=== PATIENT | female | born 1955 | race Caucasian/White ===

== ENCOUNTER 2019-09-11 09:59 | Observation (INO) | payer MEDICAID, OTHER ==
[2019-09-11 10:37] LABS: Hematocrit 47.7 % (35-47); Hemoglobin 15.9 gm/dl (12.0-16.0); Mean Cell Volume 93.7 fl (78-100); Mean Corpuscular Hemoglobin 31.2 pg (26-32); Mean Corpuscular Hgb Concent. 33.3 g/dl (32-36); Mean Platelet Volume 9.4 fl (6-9.5); Platelet Count 301 K/mm3 (150-450); Red Blood Count 5.09 M/mm3 (4.1-5.4); Red Cell Distribution Width 13.5 % (11.5-14.0); White Blood Count 10.3 K/mm3 (4.0-10.5)
[2019-09-11] MEDS ORDERED: Sodium Chloride 0.9% 10 ML FLUSH Syringe IV PRN (11:00)
[2019-09-11 11:05] LABS: INR 0.97 (0.8-3.0)
[2019-09-11 11:07] LABS: PTT 38.5 SECONDS (25.3-37.0)
[2019-09-11 11:28] LABS: ALBUMIN 4.5 g/dL (3.5-5.0); ALKALINE PHOSPHATASE 112 U/L (38-126); ANION GAP 16.3 MEQ/L (5-15); BLOOD UREA NITROGEN 14 mg/dL (7-17); CHLORIDE 108 mmol/L (98-107); Calcium 9.8 mg/dL (8.4-10.2); Carbon Dioxide 23 mmol/L (22-30); Cholesterol 256 mg/dL (50-200); Creatinine 1 0.56 mg/dL (0.52-1.04); Glucose 115 mg/dL (74-106); HDL CHOLESTEROL 47 mg/dL (40-60); LDL, DIRECT 145 mg/dL (30-100); Potassium 4.3 mmol/L (3.5-5.1); Risk Ratio 5.4; SGOT/AST 19 U/L (14-36); SGPT/ALT 16 U/L (0-35); SODIUM 143 mmol/L (137-145); TRIGLYCERIDE 211 mg/dL (30-150); Total Protein 8.2 g/dL (6.3-8.2)
[2019-09-11] MEDS ORDERED: VALIUM 10 MG/2 ML SYRINGE IV ONE (11:45)
--- NOTE | 2019-09-11 12:58 | XRAY ---
Indication: Right-sided weakness. Possible TIA. Sagittal, coronal, and axial MRI brain was performed using T1, T2, FLAIR, diffusion, and ADC sequences. Comparison: None Age-appropriate global atrophy and mild periventricular degenerative micro-ischemia signal bilaterally. Left thalamus demonstrates a 3 x 6 mm focus of restricted signal favoring acute ischemia. Posterior right abebe radiata demonstrates a 6 mm focus of remote infarct with gliosis. No acute intracranial hemorrhage, abnormal extra-axial fluid collection, or mass effect. Fourth ventricle is midline without hydrocephalus. 7/8 cranial nerve complex bilaterally symmetric. Normal flow void signal within the major intracerebral circulation. Normal appearing craniocervical junction and sella turcica. Paranasal sinuses are clear. Impression: 1. Left thalamus subcentimeter focus of acute ischemia. No acute hemorrhage or mass effect. 2. Normal aging brain including atrophy and degenerative micro-ischemia. 3. Posterior right abebe radiata subcentimeter remote infarct.
--- NOTE | 2019-09-11 13:00 | XRAY ---
Indication: Right-sided weakness. Multiple falls. Pain. Sagittal and axial MRI cervical spine performed without contrast using T1 and T2 weighted sequences. Comparison: None Several axial images are mildly degraded by motion artifact. Sagittal images demonstrates mild straightening of the upper cervical lordosis. Multilevel degenerative disc desiccation signal with C4-C6 disc space narrowing. No acute fracture, subluxation, or abnormal bone marrow signal. Spinal cord is normal in course and caliber without signal abnormality. Normal appearing craniocervical junction. Axial images at the C2-C3 level demonstrates left foraminal stenosis due to uncovertebral spurring. No disc herniation or canal stenosis. At the C3-C4 level, there is mild bilateral foraminal narrowing due to uncovertebral spurring. No disc herniation or canal stenosis. At the C4-C5-C6 levels, there is mild broad-based disc osteophyte complex slightly effacing the thecal sac and producing bilateral foraminal stenosis. Mean AP thecal sac diameter measures 11 mm at C4-C5 level and 8mm at C5-C6 level. Remaining C6-T1 levels unremarkable. Impression: 1. Mild motion artifact. 2. Multilevel degenerative disc disease detailed level by level. Greatest extent at C5-C6. 3. Negative disc herniation or spinal canal stenosis.
[2019-09-11] MEDS: SYNTHROID 50 MCG PO SCH (14:46)
[2019-09-11] MEDS: APRESOLINE 20 MG/ML INJ IV PRN ×2 (14:46→16:57)
[2019-09-11] MEDS: Sodium Chloride 0.9% 10 ML FLUSH Syringe IV SCH ×2 (14:47→21:41)
--- NOTE | 2019-09-11 15:22 | XRAY ---
Indication: TIA versus stroke. Two-dimensional sonogram and color Doppler imaging of the carotid arteries of the neck performed. Comparison: None Examination of the right carotid circulation demonstrates mildly tortuous common carotid artery. No focal arteriosclerotic plaquing, critical stenosis, or obstruction. PSV of the CCA is 69 cm/s. PSV of the ICA is 104 cm/s. ICA/CCA ratio is 1.5. Normal antegrade vertebral artery flow. Examination of the left carotid circulation demonstrates minimal eccentric calcified plaquing in the distal common carotid artery and proximal internal carotid artery. PSV of the CCA is 62 cm/s. PSV of the ICA is 76 cm/s. ICA/CCA ratio is 1.2. Normal antegrade vertebral artery flow. Impression: Widely patent right carotid circulation and minimal left carotid plaquing as detailed. Velocity measurements and ratios are negative for hemodynamically significant flow-limiting stenosis.
[2019-09-11] MEDS: PLAVIX 75 MG Tablet PO SCH (17:23)
[2019-09-11] MEDS: Ecotrin 325 MG PO SCH (17:23)
[2019-09-11] MEDS ORDERED: Zofran 4 MG/2 ML VIAL IV PRN (17:31)
[2019-09-11] MEDS ORDERED: ZOCOR 20MG PO SCH (17:35)
[2019-09-11] MEDS ORDERED: TRANDATE 20 MG/5 ML SYRINGE IV ONE (17:43)
[2019-09-11] MEDS: TYLENOL 325 MG PO PRN (17:54)
[2019-09-12] MEDS: TYLENOL 325 MG PO PRN (07:59)
[2019-09-12] MEDS ORDERED: VALIUM 10 MG/2 ML SYRINGE IV ONE ×2 (08:41→11:15)
[2019-09-12] MEDS: Ecotrin 325 MG PO SCH (09:07)
[2019-09-12] MEDS: PLAVIX 75 MG Tablet PO SCH (09:08)
[2019-09-12] MEDS: SYNTHROID 50 MCG PO SCH (09:08)
[2019-09-12] MEDS ORDERED: Toprol Xl 50 MG PO SCH (10:00)
--- NOTE | 2019-09-12 11:23 | ECHO ---
DATE OF PROCEDURE: 09/11/2019 CLINICAL INFORMATION: Transient ischemic attack versus a stroke. The M-mode 2D, and Doppler echocardiogram including color flow Doppler shows the left ventricle is normal in size at 3.6 cm. There is no thrombus noted. The septal wall thickness is increased at 1.4 cm. The left ventricular posterior wall thickness is increased at 1.4 cm. There is normal contractility of the left ventricle with an ejection fraction calculated at 61%. The mitral valve E to A inflow velocity ratio is decreased at 0.6 consistent with impaired left ventricular relaxation. The right ventricle is normal. The left atrium is normal being 3.2 cm. The interatrial septum is intact. The right atrium is normal. The aortic valve opens well. There is no aortic regurgitation present. There is mitral valvular calcification associated with mild mitral regurgitation. There is mild tricuspid regurgitation associated with a right ventricular systolic pressure of 31 mm of Mercury. The pulmonic valve is not well visualized. The aortic root is grossly normal. There is no pericardial effusion present. IMPRESSION: 1) NO THROMBUS IS NOTED. THERE IS NO EVIDENCE OF INTRA-ATRIAL SHUNT. 2) NORMAL CONTRACTILITY OF THE LEFT VENTRICLE. 3) MILD CONCENTRIC LEFT VENTRICULAR HYPERTROPHY. 4) EVIDENCE OF IMPAIRED LEFT VENTRICULAR RELAXATION. 5) MILD MITRAL REGURGITATION. 6) MILD TRICUSPID REGURGITATION. 7) MILD PULMONARY HYPERTENSION.
[2019-09-12 12:16] VITALS: PULSE 96
--- NOTE | 2019-09-12 13:08 | XRAY ---
Indication: Right-sided weakness. Stroke. Conventional contrast enhanced MRA [place] of [place] was performed using 13 cc of Dotarem contrast. Comparison: None Distal internal carotid arteries are bilaterally normal in course and caliber. Normal carotid terminus with normal branching A1 and M1 segments bilaterally. More distal anterior cerebral, middle cerebral, and anterior communicating arteries are normal in MRA appearance. Posterior communicating arteries not seen probably too small for resolution of exam. Posterior circulation demonstrates normal MRA appearance to the distal vertebral arteries with the right slightly larger in caliber. Normal branching posterior inferior cerebellar arteries bilaterally. Basilar artery is normal in course and caliber with normal branching superior cerebellar and anterior inferior cerebral arteries. Normal-appearing basilar tip and posterior cerebral arteries bilaterally. Impression: MRA [place] of [place] with contrast exam is negative.
--- NOTE | 2019-09-12 13:09 | XRAY ---
Indication: Right-sided weakness. Stroke. Conventional contrast enhanced MRA carotid arteries was performed using 13 cc of Dotarem contrast. Comparison: None Visualized aortic arch demonstrates anatomic variant for bovine arch, common origin of the right brachiocephalic and left common carotid arteries. Left and right carotid circulation demonstrates normal MRA appearance of the common carotid artery, bulb, internal carotid, and external carotid arteries. Examination of the vertebral arteries demonstrates bilaterally patent vertebral arteries without AV malformation. Impression: Anatomic variant for bovine arch. Remaining MRA carotid arteries with contrast exam is negative.
[2019-09-12 13:51] VITALS: BP 160/84; O2SAT 94
[2019-09-12] MEDS ORDERED: ZOCOR 20MG PO SCH (22:00)
--- NOTE | 2019-09-15 19:17 | PCM.DS ---
Discharge Summary Date of Admission: 09/11/19 09:59 Admitting Physician: ABDI TALBERT MD Consults: Consults on Case 09/11/19 10:23 Tele-Health Consult ROUTINE Primary Care Provider: ABDI TALBERT MD Allergies Allergies No Known Drug Allergies Allergy (Unverified 09/11/19 11:03) Hospital Summary - Vitals & Intake/Output Vital Signs: Vital Signs Temperature 98.9 F 09/12/19 13:50 Pulse Rate 96 H 09/12/19 13:50 Respiratory Rate 18 09/12/19 11:00 Blood Pressure 160/84 09/12/19 13:50 O2 Sat by Pulse Oximetry 94 L 09/12/19 13:50 Intake & Output: Intake & Output 09/13/19 09/14/19 09/15/19 09/16/19 11:59 11:59 11:59 11:59 Intake Total 360 Balance 360 - Lab Result Diagrams: 09/11/19 10:30 09/11/19 10:30 - Procedures and Test Procedures and Tests throughout Hospitalization: Therapy Orders & Screens 09/11/19 10:23 EKG ROUTINE Comment: 09/11/19 12:11 OT Screen per Nursing Assess ONCE Comment: Protocol Order Physician Instructions: Greater than 3 points order OT Admission Screening Reason For Exam: Triggered on Admission Diagnosis: TIA VS STROKE Open Wound/Cellutlitis/Pressure Ulcers: No Acute Fx/ORIF/Change in wt bearing status: Yes Severe MUSCULOSKELETAL pain: No ADL Dysfunction: No Acute CVA w/Hemiparesis/Hemiplegia: Yes Decreased Functional Mobility/Strength: Yes Sprain/Strain: No Acute Post-op Mobility Dysfunction: No Total Points: 11 PT Screen per Nursing Assess ONCE Comment: Protocol Order Physician Instructions: Greater than 3 points order PT Admission Screenin Reason For Exam: Triggered on Admission Diagnosis: TIA VS STROKE Open Wound/Cellutlitis/Pressure Ulcers: No Acute Fx/ORIF/Change in wt bearing status: Yes Severe MUSCULOSKELETAL pain: No ADL Dysfunction: No Acute CVA w/Hemiparesis/Hemiplegia: Yes Decreased Functional Mobility/Strength: Yes Sprain/Strain: No Acute Post-op Mobility Dysfunction: No Total Points: 11 Discharge Exam General Appearance: no apparent distress, alert Neurologic Exam: alert, oriented x 3, 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 Patient has L sided facial droop. Patient has decreased finger/nose testing on R side as compared to left side. Patient is able to perform the rest of cerebellum testing without deficit), motor weakness, facial droop (left sided), No slurred speech, No aphasia Eye Exam: PERRL, EOMI, eyes nml inspection, No scleral icterus Ears, Nose, Throat Exam: pharynx normal, No pharyngeal erythema, No tonsillar exudate Neck Exam: normal inspection, supple, full range of motion, No non-tender, No carotid bruit, No JVD, No limited range of motion Respiratory Exam: normal breath sounds, lungs clear, No respiratory distress, No crackles/rales, No wheezing Cardiovascular Exam: regular rate/rhythm, normal heart sounds, No murmur Final Diagnosis/Problem List - Final Discharge Diagnosis/Problem (1) CVA (cerebral vascular accident) Status: Acute Assessment & Plan: 64 yr old female with diagnosed stroke left thalamic. Patient was well outside the window for TPA treatment when she was seen in office and directly admitted. Patient started with symptoms at least 24 hours prior to coming to the clinic. Patient has residual motor deficit on R side. Patient was started on dual antiplatelet therapy and will continue on this therapy. Patient had PT ordered and will continue with this as outpatient. Patient was started on high dose statin. She had an echo done in hosp but tele neuro recommended bubble study as potential cause of stroke so patient will have one scheduled as outpatient as they are not performed at this hospital. Patient was also started on HTN meds as she has had underlying htn that has been untreated. Smoking cessation was discussed with patient. Code(s): I63.9 - CEREBRAL INFARCTION, UNSPECIFIED (2) HTN (hypertension) Status: Acute Assessment & Plan: Patient reports that she has had some elevated bp but has not been taking blood pressure medication. She was started on bp meds in hospital and reports that her headache has since improved. Will follow up on patient's bp as outpatient and make sure it is well controlled. Code(s): I10 - ESSENTIAL (PRIMARY) HYPERTENSION (3) Hypothyroid Status: Acute Assessment & Plan: Patient is newly diagnosed hypothyroidism. Will start on synthroid and in 6 weeks will get repeat tsh to make sure patient is being treated appropriately. Code(s): E03.9 - HYPOTHYROIDISM, UNSPECIFIED - Discharge Disposition: Home, Self-Care Condition: Stable Prescriptions: New Aspirin EC 325 mg [Ecotrin 325 MG] 325 mg PO DAILY #30 tablet.ec Clopidogrel Bisulfate 75 mg [PLAVIX 75 MG Tablet] 75 mg PO DAILY #30 tablet Levothyroxine Sodium 50 Mcg [Synthroid 50 Mcg] 50 mcg PO QAM #30 tablet Metoprolol Succinate 50 mg [Toprol Xl 50 MG] 50 mg PO DAILY #30 tablet.sa Simvastatin 20Mg [Zocor 20Mg] 40 mg PO HS #30 tablet Outpatient Orders: Physical Therapy Eval & Treat Location: PHYSICAL THERAPY Instructions: Stroke Additional Instructions: APPOINTMENT FOR PHYSICAL THERAPY AT [facility] 10/19/19 @ 9AM APPOINTMENT FOR ECHO WITH BUBBLE STUDY AT [facility] 09/27/19 @ 2:30PM. Follow up with: ABDI TALBERT MD [Primary Care Provider] - 09/19/19 1:45 pm Forms: Discharge Instructions
== END 2019-09-12 13:50 | disposition home or self-care (01) ==
LOC: MED SURG 09:59
PROVIDERS: ADMIT Family Medicine; ATTEND Family Medicine
DX: I63.9 Cerebral infarction, unspecified (principal); I10 Essential (primary) hypertension; E03.9 Hypothyroidism, unspecified
CPT/HCPCS: 36415; 70544; 70548; 70551; 72141; 80053; 80061; 83721; 84443; 85027; 85610; 85730; 93005; 93268; 93306; 93880; G0378; Q3014; J0360; J3360; A9270-GY

== ENCOUNTER 2021-08-26 07:07 | Day surgery (SDC) | payer MEDICARE ==
--- NOTE | 2021-08-19 12:09 | HP ---
DATE OF SURGERY: 08/26/2021 HISTORY OF PRESENT ILLNESS: The patient presents with complaints of lesion on left lower aspect of the lip. The lesion is pigmented and a bit on atypical side. The patient desires removal of the lesion at this time. PAST MEDICAL HISTORY: Reflux, hyperlipidemia, hypertension, diabetes, thyroid. PAST SURGICAL HISTORY: Tubal ligation. ALLERGIES: NKDA. MEDICATIONS: Per chart. FAMILY HISTORY: None reported. SOCIAL HISTORY: None reported. REVIEW OF SYSTEMS: CONSTITUTIONAL: Denies fever or chills. CHEST: Denies shortness of breath. CVS: Denies chest pain. ABDOMEN: Denies abdominal pain, nausea, vomiting, diarrhea, constipation or rectal bleeding. PHYSICAL EXAMINATION: GENERAL: No acute distress. CHEST: Nonlabored. No shortness of breath. CVS: Regular rate and rhythm. ABDOMEN: Soft, nontender. INTEGUMENTARY: Left lower lip pigmented lesion. IMPRESSION: Atypical lesion of the left lower lip. PLAN: Excision of pigmented atypical lesion of the left lower lip with Dr. Gal Rao. As dictated by Smita Reed NP.
[~2021-08-26 07:07] MED LIST: XYLOCAINE 1% HCL 20 ML MDV ONE
[2021-08-26] MEDS ORDERED: BACIGUENT 30 GM ONE (09:30)
[2021-08-26 10:24] VITALS: BP 148/78; PULSE 89; O2SAT 95
--- NOTE | 2021-08-26 15:09 | OP ---
SURGERY DATE: 08/26/2021 SURGERY TIME: 924 PREOPERATIVE DIAGNOSIS: 1. PIGMENTED SPOT LEFT LOWER LIP. POSTOPERATIVE DIAGNOSIS: 1. PIGMENTED SPOT LEFT LOWER LIP. PROCEDURE: 1. Excision of 1 cm lesion through elliptical excision with closure of the left lower lip. SURGEON: Gal Rao M.D. ANESTHESIA: Local. COMPLICATIONS: None. CONDITION: Stable. INDICATION: Patient requiring excision. OPERATIVE PROCEDURE: Brought to surgery for OR insurance, lights, etc. Very fine small case. 1% Lidocaine was infiltrated. It was taken elliptically. It was slightly oriented left locally from upper left down to lower right. Close margin. It appeared to be benign, but interesting. It was taken slightly wedged. It was the approximated with five simple interrupted sutures of 5-0 chromic on a blunt needle. Good approximation and hemostasis. Patient tolerated the procedure well. Pathology pending.
== END 2021-08-26 10:10 | disposition home or self-care (01) ==
LOC: SDC 07:07
PROVIDERS: ATTEND Surgery
DX: D23.0 Other benign neoplasm of skin of lip (principal)
CPT/HCPCS: 88305; 88313; 88342; A9270-GY

== ENCOUNTER 2022-04-07 19:43 | Observation (INO) | payer MEDICARE ==
[2022-04-07 20:36] LABS: Basophil (Absolute #) 0.03 (0-0.4); Eosinophil % 1.4 % (0.00-5.0); Eosinophil (Absolute #) 0.12 (0-0.5); Hematocrit 46.3 % (35-47); Hemoglobin 14.8 gm/dl (12.0-16.0); Lymphocyte (Absolute #) 1.83 (1.0-4.6); Lymphocytes % 21.4 % (24.0-44.0); Mean Cell Volume 94.5 fl (78-100); Mean Corpuscular Hemoglobin 30.2 pg (26-32); Mean Platelet Volume 9.9 fl (7.5-11.0); Monocyte (Absolute #) 0.69 (0.0-1.3); Monocytes % 8.1 % (0.0-12.0); Neutrophil % 68.7 % (36.0-66.0); Platelet Count 328 K/mm3 (150-450); Red Cell Distribution Width 12.8 % (11.5-14.0); White Blood Count 8.6 K/mm3 (4.0-10.5)
[2022-04-07 20:43] LABS: INR 0.99 (0.8-3.0); PROTIME 11.7 SECONDS (9.4-12.5)
[2022-04-07 20:45] LABS: PTT 33.2 SECONDS (25.1-36.5)
[2022-04-07 20:46] LABS: ALBUMIN 4.2 g/dL (3.5-5.0); ALKALINE PHOSPHATASE 90 U/L (38-126); ANION GAP 13.4 MEQ/L (5-15); BLOOD UREA NITROGEN 14 mg/dL (7-17); CHLORIDE 106 mmol/L (98-107); Calcium 9.1 mg/dL (8.4-10.2); Carbon Dioxide 22 mmol/L (22-30); Creatinine 1 0.58 mg/dL (0.52-1.04); EST GLOMERULAR FILTRATION RATE > 60.0 ML/MIN; Glucose 114 mg/dL (74-106); Potassium 3.9 mmol/L (3.5-5.1); SGOT/AST 27 U/L (14-36); SGPT/ALT 25 U/L (0-35); SODIUM 138 mmol/L (137-145); Total Protein 7.3 g/dL (6.3-8.2)
[2022-04-07 22:27] LABS: Appearance SLIGHTLY CLOUDY (CLEAR); Bilirubin NEGATIVE (NEGATIVE); Glucose NEGATIVE (NEGATIVE); Ketones TRACE (NEGATIVE); Ph 5.5 (5-6); Protein,Urine Dip NEGATIVE (Negative); RBC SMALL Ery/ul (0-5); Specific Gravity >=1.030 (1.005-1.025)
[2022-04-07 22:28] LABS: Dipstick done @ ? MAIN LAB; Nitrite POSITIVE (NEGATIVE); Urobilinogen 1 mg/dL (0-1)
[2022-04-07] MEDS ORDERED: ENOXAPARIN SODIUM SQ ONE ×2 (22:31→22:37)
[2022-04-07 22:35] LABS: Bacteria MODERATE /HPF (NEGATIVE); Epithelial Cells RARE /HPF (FEW); Mucus MODERATE /HPF (NEGATIVE)
--- NOTE | 2022-04-07 22:36 | ERPHSYRPT ---
- History of Present Illness Time Seen by Provider: 04/07/22 19:56 Source: patient, family Exam Limitations: no limitations Patient Subjective Stated Complaint: daughter states on Monday she began to have increased confusion, increase weakness Triage Nursing Assessment: pt ambulated into the er; pt is axo x4; c/o facial droop, increase weakness, rt leg drag; pt states hx stroke with rt side residual weakness; pt states 4/10 pain to head; pt states heartburn; pt has left facial droop; drift present to BUE and BLE; ataxia to BLE; rt foot drag; left side facial droop present; weakness present to RUE and RLE; c/o headache; pupils 3 mm and PERLL; pt states difficulity swallowing; pt states coughing after eating and drinking; c/o heartburn; pt has intermitten confusion; hx stroke in 2019; clear lung sounds in all lobes; clear heart tone; active bowel sounds in all lobes; hypertensive; tachycardic Physician History: 66-year-old female with history of CVA with some right-sided residual weakness, hypertension, hyperlipidemia, diabetes mellitus presented in the ER with 2 days history of increasing difficulties walking where she has to drag her right leg, getting off balance and some stuttering along with left facial droop. Daughter reports facial droop and stuttering started today. Much facial droop is impr deirdre on presentation. She does not have any difficulty speech at present. Denies any chest pain but does have some nausea and headache. Does have history of stroke almost 2 and half years ago. Timing/Duration: day(s) (2), gradual onset, worse Severity: moderate Character of Deficits: impaired speech, Left Facial Deficits: off balance, decrease ability to walk Baseline/Normal Cognition: alert oriented x 3 Current Cognition: alert oriented x 3 Baseline Gait: walks w/o assistance Associated Symptoms: fatigue, weakness, trouble walking, headache, No vision changes, No chest pain Allergies/Adverse Reactions: No Known Drug Allergies Allergy (Verified 04/08/22 00:07) Home Medications: Famotidine [Pepcid] 40 mg PO DAILY 08/19/21 [History] Lisinopril 10 mg [Zestril 10 MG] 10 mg PO DAILY 08/19/21 [History] Metoprolol Succinate 50 mg [Toprol Xl 50 MG] 100 mg PO Q12H 08/19/21 [History] Levothyroxine Sodium 50 Mcg [Synthroid 50 Mcg] 112 mcg PO DAILY 04/07/22 [History] Montelukast Sodium 10 mg [Singulair 10 MG] 10 mg PO DAILY 04/07/22 [History] Aspirin EC 325 mg [Ecotrin 325 MG] 325 mg PO QHS 04/08/22 [History] Metformin HCl [Metformin HCl ER] 500 mg PO DAILY 04/08/22 [History] Hx Tetanus, Diphtheria Vaccination/Date Given: No Hx Influenza Vaccination/Date Given: No Hx Pneumococcal Vaccination/Date Given: No Travel Risk - International Travel Have you traveled outside of the country in past 3 weeks: No - Coronavirus Screening Are you exhibiting any of the following symptoms?: No Close contact with a COVID-19 positive Pt in past 14-21 Days: No - Vaccine Status Have you recieved a Covid-19 vaccination: No - Review of Systems Constitutional: No Symptoms Eyes: No Symptoms Ears, Nose, & Throat: No Symptoms Respiratory: Cough Cardiac: No Symptoms Abdominal/Gastrointestinal: Nausea Genitourinary Symptoms: No Symptoms Musculoskeletal: Arthralgias, Myalgias Skin: No Symptoms Neurological: Dizziness, Gait Changes, Headache, Speech Changes Psychological: Anxiety Endocrine: No Symptoms Hematologic/Lymphatic: No Symptoms Immunological/Allergic: No Symptoms - Past Medical History Pertinent Past Medical History: Yes Neurological History: Stroke ENT History: Cataracts Cardiac History: No Pertinent History Respiratory History: No Pertinent History Endocrine Medical History: Diabetes Type II, Hypothyroidism Musculoskeletal History: No Pertinent History GI Medical History: GERD History: No Pertinent History Psycho-Social History: No Pertinent History Female Reproductive Disorders: No Pertinent History Other Medical History: left side lower lip lesion,goiter - Past Surgical History Past Surgical History: Yes Neuro Surgical History: No Pertinent History Cardiac: No Pertinent History Respiratory: No Pertinent History Gastrointestinal: No Pertinent History Genitourinary: No Pertinent History Musculoskeletal: No Pertinent History Female Surgical History: Tubal Ligation - Social History Smoking Status: Light tobacco smoker Exposure to second hand smoke: No Drug Use: none Patient Lives Alone: No - Nursing Vital Signs Nursing Vital Signs: Initial Vital Signs Temperature 98.7 F 04/07/22 20:08 Pain Scale Pain Intensity 0 - [place] Coma Scale Best Eye Response ([place]): (4) open spontaneously Best Verbal Response ([place]): (5) oriented Best Motor Response ([place]): (6) obeys commands [place] Total: 15 - Physical Exam General Appearance: no apparent distress, alert, anxiety Eye Exam: bilateral eye: normal inspection, PERRL, EOMI Ears, Nose, Throat Exam: normal ENT inspection, TMs normal, pharynx normal, moist mucous membranes Neck Exam: normal inspection, non-tender, supple, full range of motion Respiratory: normal breath sounds, lungs clear Cardiovascular: regular rate/rhythm, normal heart sounds Gastrointestinal: soft, normal bowel sounds, No tenderness Back Exam: normal inspection Extremity Exam: normal inspection, normal range of motion, pelvis stable Mental Status: alert, oriented x 3, 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, 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 Exam: normal hearing, normal speech, PERRL, No facial droop Coordination/Gait: normal finger to nose, positive Romberg's sign, No normal gait Motor/Sensory: pronator drift (R), weak motor strength RLE DTR: bicep (R): 2+, bicep (L): 2+, knee (R): 2+, knee (L): 2+ Skin Exam: normal color SpO2 Interpretation: normal SpO2: 95 O2 Delivery: Room Air - Course EKG Interpreted by Me: RATE (110), Sinus Tach, NORMAL AXIS, NORMAL INTERVALS, NORMAL QRS Ordered Tests: Medication Summary Generic Name Dose Route Start Last Admin Trade Name Freq PRN Reason Stop Dose Admin Acetaminophen 650 mg 04/07/22 23:41 04/08/22 04:48 Acetaminophen 325 Mg Tablet PO 05/07/22 23:40 650 mg Q4H PRN PRN Administration PAIN AND/OR FEVER Aspirin 325 mg 04/08/22 22:00 04/08/22 21:26 Aspirin 325 Mg Tablet.Ec PO 05/08/22 21:59 325 mg QHS RADHA Administration Clopidogrel Bisulfate 75 mg 04/08/22 10:00 04/09/22 10:09 Clopidogrel Bisulfate 75 Mg Tablet PO 05/08/22 09:59 75 mg DAILY RADHA Administration Famotidine 40 mg 04/08/22 10:00 04/09/22 10:09 Famotidine 20 Mg Tablet PO 05/08/22 09:59 40 mg DAILY RADHA Administration Sodium Chloride 1,000 mls @ 125 mls/hr 04/07/22 22:45 04/09/22 04:57 Sodium Chloride 0.9% 1000 Ml IV 05/07/22 22:44 125 mls/hr .Q8H RADHA Administration Ceftriaxone Sodium/Dextrose 1 g in 50 mls @ 100 mls/hr 04/08/22 10:00 04/09/22 10:07 Rocephin 1 Gm-D5w 50 Ml Bag IV 04/11/22 09:59 100 mls/hr Q24H10 RADHA Administration Insulin Human Lispro 0 unit 04/07/22 23:41 Insulin Lispro 1 Unit SQ 05/07/22 23:40 UD PRN HYPERGLYCEMIA Levothyroxine Sodium 112 mcg 04/08/22 10:00 04/09/22 10:23 Levothyroxine Sodium 112 Mcg Tablet PO 05/08/22 09:59 112 mcg DAILY RADHA Administration Lisinopril 10 mg 04/08/22 10:00 04/09/22 10:08 Lisinopril 10 Mg Tablet PO 05/08/22 09:59 10 mg DAILY RADHA Administration Metoprolol Succinate 100 mg 04/08/22 10:00 04/09/22 10:09 Metoprolol Succinate 100 Mg Tablet.Sa PO 05/08/22 09:59 100 mg Q12HT RADHA Administration Montelukast Sodium 10 mg 04/08/22 10:00 04/09/22 10:09 Montelukast Sodium 10 Mg Tablet PO 05/08/22 09:59 10 mg DAILY RADHA Administration Pantoprazole Sodium 40 mg 04/08/22 10:00 04/09/22 10:08 Pantoprazole 40 Mg Vial IV 05/08/22 09:59 40 mg Q24H10 RADHA Administration Simvastatin 40 mg 04/08/22 22:00 04/08/22 21:27 Simvastatin 20 Mg Tablet PO 05/08/22 21:59 40 mg HS RADHA Administration Discontinued Medications Generic Name Dose Route Start Last Admin Trade Name Freq PRN Reason Stop Dose Admin Albuterol/Ipratropium 3 ml 04/07/22 23:41 Ipratropium/Albuterol Sulfate 3 Ml Ampul.Neb IH 04/08/22 00:03 Q4HPRN PRN SHORTNESS OF BREATH/WHEEZING Enoxaparin Sodium 80 mg 04/07/22 22:31 04/07/22 22:38 Enoxaparin Sodium 80 Mg/0.8 Ml Syringe SQ 04/07/22 22:32 80 mg 1XONLY ONE Administration Enoxaparin Sodium Confirm 04/07/22 22:37 Enoxaparin Sodium 80 Mg/0.8 Ml Syringe Administered 04/07/22 22:38 Dose 80 mg SQ .STK-MED ONE Sodium Chloride Confirm 04/07/22 22:40 Sodium Chloride 0.9% 1000 Ml Administered 04/07/22 22:41 Dose 1,000 mls @ ud .ROUTE .STK-MED ONE Lab/Rad Data: Laboratory Result Diagrams 04/07/22 20:20 04/07/22 20:20 Laboratory Results 04/07/22 04/07/22 04/07/22 Range/Units 22:59 22:10 21:53 WBC (4.0-10.5) K/mm3 RBC (4.1-5.4) M/mm3 Hgb (12.0-16.0) gm/dl Hct (35-47) % MCV (78-100) fl MCH (26-32) pg MCHC (32-36) g/dl RDW (11.5-14.0) % Plt Count (150-450) K/mm3 MPV (7.5-11.0) fl Gran % (36.0-66.0) % Eos # (Auto) (0-0.5) Absolute Lymphs (auto) (1.0-4.6) Absolute Monos (auto) (0.0-1.3) Lymphocytes % (24.0-44.0) % Monocytes % (0.0-12.0) % Eosinophils % (0.00-5.0) % Basophils % (0.0-0.4) % Absolute Granulocytes (1.4-6.9) Basophils # (0-0.4) PT (9.4-12.5) SECONDS INR (0.8-3.0) APTT (25.1-36.5) SECONDS Sodium (137-145) mmol/L Potassium (3.5-5.1) mmol/L Chloride (98-107) mmol/L Carbon Dioxide (22-30) mmol/L Anion Gap (5-15) MEQ/L BUN (7-17) mg/dL Creatinine (0.52-1.04) mg/dL Estimated GFR ML/MIN Glucose (74-106) mg/dL Calcium (8.4-10.2) mg/dL Total Bilirubin (0.2-1.3) mg/dL AST (14-36) U/L ALT (0-35) U/L Alkaline Phosphatase (38-126) U/L Troponin I < 0.012 (0.000-0.034) ng/mL Serum Total Protein (6.3-8.2) g/dL Albumin (3.5-5.0) g/dL Urinalys Dipstick Clnc MAIN LAB Urine Color JAIME (YELLOW) Urine Appearance SLIGHTLY CLOUDY (CLEAR) Urine pH 5.5 (5-6) Ur Specific [place] >=1.030 (1.005-1.025) POC Urine Protein Conf NEGATIVE (Negative) Urine Ketones TRACE (NEGATIVE) Urine Nitrite POSITIVE (NEGATIVE) Urine Bilirubin NEGATIVE (NEGATIVE) Urine Urobilinogen 1 (0-1) mg/dL Urine Leukocytes TRACE (NEGATIVE) Urine WBC (Auto) 6-10 (0-5) /HPF Urine RBC (Auto) NONE (0-2) /HPF U Epithel Cells (Auto) RARE (FEW) /HPF Urine Bacteria (Auto) MODERATE (NEGATIVE) /HPF Urine RBC SMALL (0-5) Tanner/ul Urine Mucus (Auto) MODERATE (NEGATIVE) /HPF Ur Culture Indicated? YES Urine Glucose NEGATIVE (NEGATIVE) mg/dL Influenza Type A Ag NEGATIVE (NEGATIVE) Influenza Type B Ag NEGATIVE (NEGATIVE) RSV (PCR) NEGATIVE (Negative) SARS-CoV-2 (PCR) NEGATIVE (NEGATIVE) 04/07/22 04/07/22 04/07/22 Range/Units 20:20 20:20 20:20 WBC (4.0-10.5) K/mm3 RBC (4.1-5.4) M/mm3 Hgb (12.0-16.0) gm/dl Hct (35-47) % MCV (78-100) fl MCH (26-32) pg MCHC (32-36) g/dl RDW (11.5-14.0) % Plt Count (150-450) K/mm3 MPV (7.5-11.0) fl Gran % (36.0-66.0) % Eos # (Auto) (0-0.5) Absolute Lymphs (auto) (1.0-4.6) Absolute Monos (auto) (0.0-1.3) Lymphocytes % (24.0-44.0) % Monocytes % (0.0-12.0) % Eosinophils % (0.00-5.0) % Basophils % (0.0-0.4) % Absolute Granulocytes (1.4-6.9) Basophils # (0-0.4) PT 11.7 (9.4-12.5) SECONDS INR 0.99 (0.8-3.0) APTT 33.2 (25.1-36.5) SECONDS Sodium 138 (137-145) mmol/L Potassium 3.9 (3.5-5.1) mmol/L Chloride 106 (98-107) mmol/L Carbon Dioxide 22 (22-30) mmol/L Anion Gap 13.4 (5-15) MEQ/L BUN 14 (7-17) mg/dL Creatinine 0.58 (0.52-1.04) mg/dL Estimated GFR > 60.0 ML/MIN Glucose 114 H (74-106) mg/dL Calcium 9.1 (8.4-10.2) mg/dL Total Bilirubin 0.80 (0.2-1.3) mg/dL AST 27 (14-36) U/L ALT 25 (0-35) U/L Alkaline Phosphatase 90 (38-126) U/L Troponin I < 0.012 (0.000-0.034) ng/mL Serum Total Protein 7.3 (6.3-8.2) g/dL Albumin 4.2 (3.5-5.0) g/dL Urinalys Dipstick Clnc Urine Color (YELLOW) Urine Appearance (CLEAR) Urine pH (5-6) Ur Specific [place] (1.005-1.025) POC Urine Protein Conf (Negative) Urine Ketones (NEGATIVE) Urine Nitrite (NEGATIVE) Urine Bilirubin (NEGATIVE) Urine Urobilinogen (0-1) mg/dL Urine Leukocytes (NEGATIVE) Urine WBC (Auto) (0-5) /HPF Urine RBC (Auto) (0-2) /HPF U Epithel Cells (Auto) (FEW) /HPF Urine Bacteria (Auto) (NEGATIVE) /HPF Urine RBC (0-5) Tanner/ul Urine Mucus (Auto) (NEGATIVE) /HPF Ur Culture Indicated? Urine Glucose (NEGATIVE) mg/dL Influenza Type A Ag (NEGATIVE) Influenza Type B Ag (NEGATIVE) RSV (PCR) (Negative) SARS-CoV-2 (PCR) (NEGATIVE) 04/07/22 Range/Units 20:20 WBC 8.6 (4.0-10.5) K/mm3 RBC 4.90 (4.1-5.4) M/mm3 Hgb 14.8 (12.0-16.0) gm/dl Hct 46.3 (35-47) % MCV 94.5 (78-100) fl MCH 30.2 (26-32) pg MCHC 32.0 (32-36) g/dl RDW 12.8 (11.5-14.0) % Plt Count 328 (150-450) K/mm3 MPV 9.9 (7.5-11.0) fl Gran % 68.7 H (36.0-66.0) % Eos # (Auto) 0.12 (0-0.5) Absolute Lymphs (auto) 1.83 (1.0-4.6) Absolute Monos (auto) 0.69 (0.0-1.3) Lymphocytes % 21.4 L (24.0-44.0) % Monocytes % 8.1 (0.0-12.0) % Eosinophils % 1.4 (0.00-5.0) % Basophils % 0.4 (0.0-0.4) % Absolute Granulocytes 5.90 (1.4-6.9) Basophils # 0.03 (0-0.4) PT (9.4-12.5) SECONDS INR (0.8-3.0) APTT (25.1-36.5) SECONDS Sodium (137-145) mmol/L Potassium (3.5-5.1) mmol/L Chloride (98-107) mmol/L Carbon Dioxide (22-30) mmol/L Anion Gap (5-15) MEQ/L BUN (7-17) mg/dL Creatinine (0.52-1.04) mg/dL Estimated GFR ML/MIN Glucose (74-106) mg/dL Calcium (8.4-10.2) mg/dL Total Bilirubin (0.2-1.3) mg/dL AST (14-36) U/L ALT (0-35) U/L Alkaline Phosphatase (38-126) U/L Troponin I (0.000-0.034) ng/mL Serum Total Protein (6.3-8.2) g/dL Albumin (3.5-5.0) g/dL Urinalys Dipstick Clnc Urine Color (YELLOW) Urine Appearance (CLEAR) Urine pH (5-6) Ur Specific [place] (1.005-1.025) POC Urine Protein Conf (Negative) Urine Ketones (NEGATIVE) Urine Nitrite (NEGATIVE) Urine Bilirubin (NEGATIVE) Urine Urobilinogen (0-1) mg/dL Urine Leukocytes (NEGATIVE) Urine WBC (Auto) (0-5) /HPF Urine RBC (Auto) (0-2) /HPF U Epithel Cells (Auto) (FEW) /HPF Urine Bacteria (Auto) (NEGATIVE) /HPF Urine RBC (0-5) Tanner/ul Urine Mucus (Auto) (NEGATIVE) /HPF Ur Culture Indicated? Urine Glucose (NEGATIVE) mg/dL Influenza Type A Ag (NEGATIVE) Influenza Type B Ag (NEGATIVE) RSV (PCR) (Negative) SARS-CoV-2 (PCR) (NEGATIVE) - Progress Progress: improved Progress Note: 04/07/22 22:35 66-year old is evaluated for stroke symptoms. Patient is out of the window. CT head is negative for any acute findings. Work-up grossly unremarkable. Patient is feeling better on presentation in the ER. No obvious focal neurodeficit. Did not appreciate any facial droop. Neuro consult is obtained and recommended getting MRI in the morning. Patient discussed with Dr. Yost who recommended starting Lovenox as patient is having symptoms despite being on aspirin and Plavix both. Discussed with : Isrrael Will see patient in: hospital (observation) Counseled pt/family regarding: lab results, diagnosis, need for follow-up, rad results, smoking cessation - Departure Departure Disposition: Observation Clinical Impression: Stroke-like symptoms Condition: Stable Critical Care Time: No
[2022-04-07 22:38] LABS: Urine Cultured Indicated? YES
[2022-04-07] MEDS ORDERED: Sodium Chloride 0.9% 1000 ML 1,000 ML ONE (22:40)
[2022-04-07] MEDS: Sodium Chloride 0.9% 1000 ML 1,000 ML IV SCH (22:44)
[2022-04-07 22:53] LABS: INFLUENZA A NEGATIVE (NEGATIVE); INFLUENZA B NEGATIVE (NEGATIVE); RESPIRATORY SYNCTIAL VIRUS NEGATIVE (Negative); SARS-CoV-2 Xpert Express NEGATIVE (NEGATIVE)
[2022-04-07] MEDS ORDERED: TYLENOL 325 MG PO PRN (23:41)
[2022-04-07] MEDS ORDERED: HUMALOG SQ PRN (23:41)
[2022-04-07] MEDS ORDERED: DUONEB 0.5-3 MG/3 ml Neb IH PRN (23:41)
[2022-04-08 05:37] LABS: Hematocrit 43.3 % (35-47); Hemoglobin 14.1 gm/dl (12.0-16.0); Mean Cell Volume 95.4 fl (78-100); Mean Corpuscular Hemoglobin 31.1 pg (26-32); Mean Corpuscular Hgb Concent. 32.6 g/dl (32-36); Mean Platelet Volume 10.2 fl (7.5-11.0); Platelet Count 276 K/mm3 (150-450); Red Blood Count 4.54 M/mm3 (4.1-5.4); Red Cell Distribution Width 12.8 % (11.5-14.0); White Blood Count 5.5 K/mm3 (4.0-10.5)
[2022-04-08 06:09] LABS: ALBUMIN 3.4 g/dL (3.5-5.0); ALKALINE PHOSPHATASE 79 U/L (38-126); ANION GAP 12.8 MEQ/L (5-15); BLOOD UREA NITROGEN 11 mg/dL (7-17); CHLORIDE 109 mmol/L (98-107); Calcium 8.5 mg/dL (8.4-10.2); Carbon Dioxide 20 mmol/L (22-30); Creatinine 1 0.47 mg/dL (0.52-1.04); EST GLOMERULAR FILTRATION RATE > 60.0 ML/MIN; Glucose 140 mg/dL (74-106); Potassium 3.7 mmol/L (3.5-5.1); SGOT/AST 24 U/L (14-36); SGPT/ALT 22 U/L (0-35); SODIUM 138 mmol/L (137-145); TROPONIN < 0.012 ng/mL (0.000-0.034); Total Protein 5.9 g/dL (6.3-8.2)
[2022-04-08] MEDS: Sodium Chloride 0.9% 1000 ML 1,000 ML IV SCH ×3 (06:57→21:26)
[2022-04-08] MEDS: PROTONIX 40 MG IV IV SCH (08:33)
[2022-04-08] MEDS: ROCEPHIN 1 Gm-D5w 50 ml Bag** 1 G/50 ML IVPB IV SCH (08:33)
--- NOTE | 2022-04-08 08:54 | XRAY ---
Indication: Cough. Comparison: None Portable chest clear with a few incidental tiny biapical calcified granulomas. Heart not enlarged with incidental tortuous descending aorta and small hiatal hernia. Bony thorax intact with mild osteopenia and degenerative changes. Impression: Nonacute chest with chronic features.
--- NOTE | 2022-04-08 08:54 | XRAY ---
Indication: Acute mental status change. Headache. History of stroke. Currently on blood thinner therapy. Multiple contiguous axial images obtained through the head without contrast. Comparison: None Age-appropriate global atrophy and mild periventricular degenerative micro-ischemia bilaterally. Remote lacunar infarcts anterior limb right internal capsule and left thalamus. No acute intracranial hemorrhage, abnormal extra-axial fluid collection, or mass effect. Fourth ventricle is midline without hydrocephalus. Bony calvarium intact. Visualized paranasal sinuses and mastoid air cells are clear. Impression: Nonacute senile brain with remote lacunar infarcts as detailed.
--- NOTE | 2022-04-08 08:54 | PCM.HP ---
History of Present Illness - Chief Complaint Chief Complaint: CVA History of Present Illness: is a 66 year old female patient of Dr Bean who presented to the ER yesterday with acute onset of worsening right hemiparesis with some facial droop, she had some confusion and trouble with her speech as well. has a history of a prior CVA with right side weakness, has been fine until 2 days ago. she feels her symptoms are improved today but she is still having some weakness. - Review of Systems Constitutional: No Symptoms Eyes: No Symptoms Respiratory: No Cough, No Short Of Breath Cardiac: No Chest Pain, No Edema, No Syncope Abdominal/Gastrointestinal: No Abdominal Pain, No Nausea, No Vomiting, No Diarrhea Genitourinary Symptoms: No Dysuria Skin: No Rash Neurological: Focal Weakness, Speech Changes Psychological: No Symptoms All Other Systems: Reviewed and Negative Medications & Allergies Home Medications: Home Medication List Simvastatin 20Mg [Zocor 20Mg] 40 mg PO HS #30 tablet 09/12/19 [Rx Confirmed 04/08/22] Famotidine [Pepcid] 40 mg PO DAILY 08/19/21 [History Confirmed 04/08/22] Lisinopril 10 mg [Zestril 10 MG] 10 mg PO DAILY 08/19/21 [History Confirm ed 04/08/22] Metoprolol Succinate 50 mg [Toprol Xl 50 MG] 100 mg PO Q12H 08/19/21 [History Confirmed 04/08/22] Clopidogrel Bisulfate 75 mg [PLAVIX 75 MG Tablet] 75 mg PO DAILY #30 08/26/21 [Rx Confirmed 04/08/22] Levothyroxine Sodium 50 Mcg [Synthroid 50 Mcg] 112 mcg PO DAILY 04/07/22 [History Confirmed 04/08/22] Montelukast Sodium 10 mg [Singulair 10 MG] 10 mg PO DAILY 04/07/22 [History Confirmed 04/08/22] Aspirin EC 325 mg [Ecotrin 325 MG] 325 mg PO QHS 04/08/22 [History Confirmed 04/08/22] Metformin HCl [Metformin HCl ER] 500 mg PO DAILY 04/08/22 [History Confirmed 04/08/22] Allergies/Adverse Reactions: Allergies Allergy/AdvReac Type Severity Reaction Status Date / Time No Known Drug Allergies Allergy Verified 04/08/22 00:07 - Past Medical History Past Medical History: Yes Neurological History: Stroke ENT History: Cataracts Cardiac History: High Cholesterol, Hypertension Respiratory History: No Pertinent History Endocrine Medical History: Diabetes Type II, Hypothyroidism Musculoskelatal History: No Pertinent History GI Medical History: GERD History: No Pertinent History Pyscho-Social History: No Pertinent History Reproductive Disorders: No Pertinent History Comment: . - Female History Are you now?: No - Past Surgical History Past Surgical History: Yes Neuro Surgical History: No Pertinent History Cardiac History: No Pertinent History Respiratory Surgery: No Pertinent History GI Surgical History: No Pertinent History Genitourinary Surgical Hx: No Pertinent History Musculskeletal Surgical Hx: No Pertinent History Female Surgical History: Tubal Ligation - Social History Smoking Status: Never smoker Exposure to second hand smoke: No Alcohol: None Drug Use: none - Physical Exam Vital Signs: Vital Signs - 24 hr Temp Pulse Resp BP Pulse Ox 04/08/22 08:00 98 F 81 18 118/84 97 04/08/22 07:31 103 H 04/08/22 04:00 97.1 F 103 H 18 116/68 92 L 04/08/22 02:00 98 H 16 93 L 04/08/22 01:00 99 H 22 121/73 94 L 04/08/22 00:16 98.7 F 93 H 20 120/69 93 L 04/07/22 23:49 104 H 17 94 L 04/07/22 23:07 95 04/07/22 23:00 100 H 20 102/74 96 04/07/22 22:00 101 H 16 126/78 95 04/07/22 21:56 98.7 F 101 H 18 123/77 94 L 04/07/22 21:00 107 H 20 105/78 95 04/07/22 20:37 104 H 18 146/82 97 04/07/22 20:33 108 H 18 146/82 97 04/07/22 20:08 98.7 F General Appearance: no apparent distress Neurologic Exam: alert, oriented x 3, cooperative, motor weakness (slight right arm and leg motor weakness), No disoriented, No confusion, No agitation, No facial droop, No slurred speech Eye Exam: PERRL/EOMI, eyes nml inspection Respiratory Exam: normal breath sounds, lungs clear, No respiratory distress Cardiovascular Exam: regular rate/rhythm, normal heart sounds, normal peripheral pulses Gastrointestinal/Abdomen Exam: soft, normal bowel sounds, No tenderness, No mass Extremity Exam: normal inspection, normal range of motion, pelvis stable Skin Exam: normal color, warm, dry, No rash Results - Labs Lab/Micro Results: Lab Results-Last 24 Hours 04/07/22 04/07/22 04/07/22 Range/Units 20:20 20:20 20:20 WBC 8.6 (4.0-10.5) K/mm3 RBC 4.90 (4.1-5.4) M/mm3 Hgb 14.8 (12.0-16.0) gm/dl Hct 46.3 (35-47) % MCV 94.5 (78-100) fl MCH 30.2 (26-32) pg MCHC 32.0 (32-36) g/dl RDW 12.8 (11.5-14.0) % Plt Count 328 (150-450) K/mm3 MPV 9.9 (7.5-11.0) fl Gran % 68.7 H (36.0-66.0) % Eos # (Auto) 0.12 (0-0.5) Absolute Lymphs (auto) 1.83 (1.0-4.6) Absolute Monos (auto) 0.69 (0.0-1.3) Lymphocytes % 21.4 L (24.0-44.0) % Monocytes % 8.1 (0.0-12.0) % Eosinophils % 1.4 (0.00-5.0) % Basophils % 0.4 (0.0-0.4) % Absolute Granulocytes 5.90 (1.4-6.9) Basophils # 0.03 (0-0.4) PT 11.7 (9.4-12.5) SECONDS INR 0.99 (0.8-3.0) APTT 33.2 (25.1-36.5) SECONDS Sodium 138 (137-145) mmol/L Potassium 3.9 (3.5-5.1) mmol/L Chloride 106 (98-107) mmol/L Carbon Dioxide 22 (22-30) mmol/L Anion Gap 13.4 (5-15) MEQ/L BUN 14 (7-17) mg/dL Creatinine 0.58 (0.52-1.04) mg/dL Estimated GFR > 60.0 ML/MIN Glucose 114 H (74-106) mg/dL Calcium 9.1 (8.4-10.2) mg/dL Total Bilirubin 0.80 (0.2-1.3) mg/dL AST 27 (14-36) U/L ALT 25 (0-35) U/L Alkaline Phosphatase 90 (38-126) U/L Troponin I (0.000-0.034) ng/mL Serum Total Protein 7.3 (6.3-8.2) g/dL Albumin 4.2 (3.5-5.0) g/dL Urinalys Dipstick Clnc Urine Color (YELLOW) Urine Appearance (CLEAR) Urine pH (5-6) Ur Specific [place] (1.005-1.025) POC Urine Protein Conf (Negative) Urine Ketones (NEGATIVE) Urine Nitrite (NEGATIVE) Urine Bilirubin (NEGATIVE) Urine Urobilinogen (0-1) mg/dL Urine Leukocytes (NEGATIVE) Urine WBC (Auto) (0-5) /HPF Urine RBC (Auto) (0-2) /HPF U Epithel Cells (Auto) (FEW) /HPF Urine Bacteria (Auto) (NEGATIVE) /HPF Urine RBC (0-5) Tanner/ul Urine Mucus (Auto) (NEGATIVE) /HPF Ur Culture Indicated? Urine Glucose (NEGATIVE) mg/dL Influenza Type A Ag (NEGATIVE) Influenza Type B Ag (NEGATIVE) RSV (PCR) (Negative) SARS-CoV-2 (PCR) (NEGATIVE) 04/07/22 04/07/22 04/07/22 Range/Units 20:20 21:53 22:10 WBC (4.0-10.5) K/mm3 RBC (4.1-5.4) M/mm3 Hgb (12.0-16.0) gm/dl Hct (35-47) % MCV (78-100) fl MCH (26-32) pg MCHC (32-36) g/dl RDW (11.5-14.0) % Plt Count (150-450) K/mm3 MPV (7.5-11.0) fl Gran % (36.0-66.0) % Eos # (Auto) (0-0.5) Absolute Lymphs (auto) (1.0-4.6) Absolute Monos (auto) (0.0-1.3) Lymphocytes % (24.0-44.0) % Monocytes % (0.0-12.0) % Eosinophils % (0.00-5.0) % Basophils % (0.0-0.4) % Absolute Granulocytes (1.4-6.9) Basophils # (0-0.4) PT (9.4-12.5) SECONDS INR (0.8-3.0) APTT (25.1-36.5) SECONDS Sodium (137-145) mmol/L Potassium (3.5-5.1) mmol/L Chloride (98-107) mmol/L Carbon Dioxide (22-30) mmol/L Anion Gap (5-15) MEQ/L BUN (7-17) mg/dL Creatinine (0.52-1.04) mg/dL Estimated GFR ML/MIN Glucose (74-106) mg/dL Calcium (8.4-10.2) mg/dL Total Bilirubin (0.2-1.3) mg/dL AST (14-36) U/L ALT (0-35) U/L Alkaline Phosphatase (38-126) U/L Troponin I < 0.012 (0.000-0.034) ng/mL Serum Total Protein (6.3-8.2) g/dL Albumin (3.5-5.0) g/dL Urinalys Dipstick Clnc MAIN LAB Urine Color JAIME (YELLOW) Urine Appearance SLIGHTLY CLOUDY (CLEAR) Urine pH 5.5 (5-6) Ur Specific [place] >=1.030 (1.005-1.025) POC Urine Protein Conf NEGATIVE (Negative) Urine Ketones TRACE (NEGATIVE) Urine Nitrite POSITIVE (NEGATIVE) Urine Bilirubin NEGATIVE (NEGATIVE) Urine Urobilinogen 1 (0-1) mg/dL Urine Leukocytes TRACE (NEGATIVE) Urine WBC (Auto) 6-10 (0-5) /HPF Urine RBC (Auto) NONE (0-2) /HPF U Epithel Cells (Auto) RARE (FEW) /HPF Urine Bacteria (Auto) MODERATE (NEGATIVE) /HPF Urine RBC SMALL (0-5) Tanner/ul Urine Mucus (Auto) MODERATE (NEGATIVE) /HPF Ur Culture Indicated? YES Urine Glucose NEGATIVE (NEGATIVE) mg/dL Influenza Type A Ag NEGATIVE (NEGATIVE) Influenza Type B Ag NEGATIVE (NEGATIVE) RSV (PCR) NEGATIVE (Negative) SARS-CoV-2 (PCR) NEGATIVE (NEGATIVE) 04/07/22 04/08/22 04/08/22 Range/Units 22:59 02:28 04:15 WBC (4.0-10.5) K/mm3 RBC (4.1-5.4) M/mm3 Hgb (12.0-16.0) gm/dl Hct (35-47) % MCV (78-100) fl MCH (26-32) pg MCHC (32-36) g/dl RDW (11.5-14.0) % Plt Count (150-450) K/mm3 MPV (7.5-11.0) fl Gran % (36.0-66.0) % Eos # (Auto) (0-0.5) Absolute Lymphs (auto) (1.0-4.6) Absolute Monos (auto) (0.0-1.3) Lymphocytes % (24.0-44.0) % Monocytes % (0.0-12.0) % Eosinophils % (0.00-5.0) % Basophils % (0.0-0.4) % Absolute Granulocytes (1.4-6.9) Basophils # (0-0.4) PT (9.4-12.5) SECONDS INR (0.8-3.0) APTT (25.1-36.5) SECONDS Sodium 138 (137-145) mmol/L Potassium 3.7 (3.5-5.1) mmol/L Chloride 109 H (98-107) mmol/L Carbon Dioxide 20 L (22-30) mmol/L Anion Gap 12.8 (5-15) MEQ/L BUN 11 (7-17) mg/dL Creatinine 0.47 L (0.52-1.04) mg/dL Estimated GFR > 60.0 ML/MIN Glucose 140 H (74-106) mg/dL Calcium 8.5 (8.4-10.2) mg/dL Total Bilirubin 0.70 (0.2-1.3) mg/dL AST 24 (14-36) U/L ALT 22 (0-35) U/L Alkaline Phosphatase 79 (38-126) U/L Troponin I < 0.012 < 0.012 < 0.012 (0.000-0.034) ng/mL Serum Total Protein 5.9 L (6.3-8.2) g/dL Albumin 3.4 L (3.5-5.0) g/dL Urinalys Dipstick Clnc Urine Color (YELLOW) Urine Appearance (CLEAR) Urine pH (5-6) Ur Specific [place] (1.005-1.025) POC Urine Protein Conf (Negative) Urine Ketones (NEGATIVE) Urine Nitrite (NEGATIVE) Urine Bilirubin (NEGATIVE) Urine Urobilinogen (0-1) mg/dL Urine Leukocytes (NEGATIVE) Urine WBC (Auto) (0-5) /HPF Urine RBC (Auto) (0-2) /HPF U Epithel Cells (Auto) (FEW) /HPF Urine Bacteria (Auto) (NEGATIVE) /HPF Urine RBC (0-5) Tanner/ul Urine Mucus (Auto) (NEGATIVE) /HPF Ur Culture Indicated? Urine Glucose (NEGATIVE) mg/dL Influenza Type A Ag (NEGATIVE) Influenza Type B Ag (NEGATIVE) RSV (PCR) (Negative) SARS-CoV-2 (PCR) (NEGATIVE) 04/08/22 Range/Units 04:15 WBC 5.5 (4.0-10.5) K/mm3 RBC 4.54 (4.1-5.4) M/mm3 Hgb 14.1 (12.0-16.0) gm/dl Hct 43.3 (35-47) % MCV 95.4 (78-100) fl MCH 31.1 (26-32) pg MCHC 32.6 (32-36) g/dl RDW 12.8 (11.5-14.0) % Plt Count 276 (150-450) K/mm3 MPV 10.2 (7.5-11.0) fl Gran % (36.0-66.0) % Eos # (Auto) (0-0.5) Absolute Lymphs (auto) (1.0-4.6) Absolute Monos (auto) (0.0-1.3) Lymphocytes % (24.0-44.0) % Monocytes % (0.0-12.0) % Eosinophils % (0.00-5.0) % Basophils % (0.0-0.4) % Absolute Granulocytes (1.4-6.9) Basophils # (0-0.4) PT (9.4-12.5) SECONDS INR (0.8-3.0) APTT (25.1-36.5) SECONDS Sodium (137-145) mmol/L Potassium (3.5-5.1) mmol/L Chloride (98-107) mmol/L Carbon Dioxide (22-30) mmol/L Anion Gap (5-15) MEQ/L BUN (7-17) mg/dL Creatinine (0.52-1.04) mg/dL Estimated GFR ML/MIN Glucose (74-106) mg/dL Calcium (8.4-10.2) mg/dL Total Bilirubin (0.2-1.3) mg/dL AST (14-36) U/L ALT (0-35) U/L Alkaline Phosphatase (38-126) U/L Troponin I (0.000-0.034) ng/mL Serum Total Protein (6.3-8.2) g/dL Albumin (3.5-5.0) g/dL Urinalys Dipstick Clnc Urine Color (YELLOW) Urine Appearance (CLEAR) Urine pH (5-6) Ur Specific [place] (1.005-1.025) POC Urine Protein Conf (Negative) Urine Ketones (NEGATIVE) Urine Nitrite (NEGATIVE) Urine Bilirubin (NEGATIVE) Urine Urobilinogen (0-1) mg/dL Urine Leukocytes (NEGATIVE) Urine WBC (Auto) (0-5) /HPF Urine RBC (Auto) (0-2) /HPF U Epithel Cells (Auto) (FEW) /HPF Urine Bacteria (Auto) (NEGATIVE) /HPF Urine RBC (0-5) Tanner/ul Urine Mucus (Auto) (NEGATIVE) /HPF Ur Culture Indicated? Urine Glucose (NEGATIVE) mg/dL Influenza Type A Ag (NEGATIVE) Influenza Type B Ag (NEGATIVE) RSV (PCR) (Negative) SARS-CoV-2 (PCR) (NEGATIVE) Accuchecks Date 04/07/22 Time 20:57 - Radiology Impressions Radiology Exams & Impressions: Radiology Procedures Category Date Time Status CHEST 1 VIEW (PORTABLE) Stat Exams 04/07/22 20:58 Taken HEAD WITHOUT CONTRAST [CT] Stat Exams 04/07/22 20:07 Taken MRI BRAIN W/O CONTRAST [MRI] Routine Exams 04/08/22 08:11 Ordered Assessment/Plan (1) CVA (cerebral vascular accident) Current Visit: No Status: Acute Assessment & Plan: continue aspirin and plavix, will get MRI as recommended by neuro consult. ?new stroke vs exacerbation of chronic deficits due to concurrent infection. Code(s): I63.9 - CEREBRAL INFARCTION, UNSPECIFIED (2) UTI (urinary tract infection) Current Visit: Yes Status: Acute Assessment & Plan: on rocephin, culture pending Code(s): N39.0 - URINARY TRACT INFECTION, SITE NOT SPECIFIED
[2022-04-08] MEDS ORDERED: NON-FORMULARY ITEM (Famotidine [Pepcid] 40 MG Tablet) PO SCH (10:00)
[2022-04-08] MEDS ORDERED: Toprol Xl 50 MG PO SCH (10:00)
[2022-04-08] MEDS: Pepcid 20 MG PO SCH (10:15)
[2022-04-08] MEDS: Singulair 10 MG PO SCH (10:15)
[2022-04-08] MEDS: Toprol Xl 100 MG PO SCH ×2 (10:16→21:27)
[2022-04-08] MEDS: SYNTHROID 112 MCG PO SCH (10:21)
[2022-04-08] MEDS: PLAVIX Tablet PO SCH (10:21)
[2022-04-08] MEDS: Zestril 10 MG PO SCH (10:21)
[2022-04-08 15:20] LABS: Basophil 1 % (0.0-1.0); Eosinophil 1 % (0.00-3.0); Lymphocytes 28 % (24-44); Monocyte 11 % (0.0-12.0); Platelet Estimate NORMAL (NORMAL); Total Cells Counted 100
[2022-04-08] MEDS ORDERED: ZOCOR 20MG PO SCH (22:00)
[2022-04-08] MEDS ORDERED: Ecotrin 325 MG PO SCH (22:00)
[2022-04-09] MEDS: Sodium Chloride 0.9% 1000 ML 1,000 ML IV SCH (04:57)
[2022-04-09 06:15] LABS: Absolute Neutrophil Ct (ANC) 3.31 (1.4-6.9); Basophil (Absolute #) 0.03 (0-0.4); Eosinophil % 1.9 % (0.00-5.0); Eosinophil (Absolute #) 0.12 (0-0.5); Hematocrit 41.6 % (35-47); Hemoglobin 13.3 gm/dl (12.0-16.0); Lymphocyte (Absolute #) 1.97 (1.0-4.6); Lymphocytes % 31.5 % (24.0-44.0); Mean Cell Volume 95.4 fl (78-100); Mean Corpuscular Hemoglobin 30.5 pg (26-32); Mean Platelet Volume 9.6 fl (7.5-11.0); Monocyte (Absolute #) 0.83 (0.0-1.3); Monocytes % 13.3 % (0.0-12.0); Neutrophil % 52.8 % (36.0-66.0); Platelet Count 248 K/mm3 (150-450); Red Blood Count 4.36 M/mm3 (4.1-5.4); Red Cell Distribution Width 12.6 % (11.5-14.0); White Blood Count 6.3 K/mm3 (4.0-10.5)
[2022-04-09 06:26] LABS: ALBUMIN 3.3 g/dL (3.5-5.0); ALKALINE PHOSPHATASE 69 U/L (38-126); ANION GAP 9.2 MEQ/L (5-15); BLOOD UREA NITROGEN 9 mg/dL (7-17); CHLORIDE 110 mmol/L (98-107); Calcium 8.3 mg/dL (8.4-10.2); Carbon Dioxide 23 mmol/L (22-30); Creatinine 1 0.49 mg/dL (0.52-1.04); EST GLOMERULAR FILTRATION RATE > 60.0 ML/MIN; Glucose 136 mg/dL (74-106); Potassium 3.6 mmol/L (3.5-5.1); SGOT/AST 26 U/L (14-36); SGPT/ALT 23 U/L (0-35); SODIUM 139 mmol/L (137-145)
[2022-04-09] MEDS: ROCEPHIN 1 Gm-D5w 50 ml Bag** 1 G/50 ML IVPB IV SCH (10:07)
[2022-04-09] MEDS: PROTONIX 40 MG IV IV SCH (10:08)
[2022-04-09] MEDS: Zestril 10 MG PO SCH (10:08)
[2022-04-09] MEDS: Singulair 10 MG PO SCH (10:09)
[2022-04-09] MEDS: Toprol Xl 100 MG PO SCH (10:09)
[2022-04-09] MEDS: Pepcid 20 MG PO SCH (10:09)
[2022-04-09] MEDS: PLAVIX Tablet PO SCH (10:09)
[2022-04-09] MEDS: SYNTHROID 112 MCG PO SCH (10:23)
[2022-04-09 11:59] VITALS: BP 126/75; PULSE 77
[2022-04-09 14:14] VITALS: O2SAT 95
--- NOTE | 2022-04-09 15:28 | PCM.DS ---
Discharge Summary Date of Admission: 04/07/22 23:40 Admitting Physician: JOHN BONE Primary Care Provider: ALLIE BEAN DO Allergies Allergies No Known Drug Allergies Allergy (Verified 04/08/22 00:07) Hospital Summary - Hospital Course Hospital Course: Pt is a 66 yo female pt of Dr. Bean with hx CVA (and R sided deficit) who was admitted through ER with question of new CVA. She had worsening sx on the right side for several days. Pt was also found to have a UTI and was started on IV rocephin (E. coli, susceptible to rocephin). Her BS were found to be elevated (136 this morning); she says Dr. Bean recently checked her a1c and she has an appointment branden joao next week to discuss it. Pt will be sent home on aspirin and plavix. She was supposed to get an MRI but she refused. She had a swallow study, which was fine, and has been tolerating a regular diet. Pt had KENNEDY on admission - KENNEDY is persistent. She is however feeling much better and she would like to be discharged to home. Will be sent home on keflex to finish 4d total abx. - Vitals & Intake/Output Vital Signs: Vital Signs Temperature 98.3 F 04/09/22 11:57 Pulse Rate 77 04/09/22 11:57 Respiratory Rate 16 04/09/22 11:57 Blood Pressure 126/75 04/09/22 11:57 O2 Sat by Pulse Oximetry 95 04/09/22 14:14 Intake & Output: Intake & Output 04/07/22 04/08/22 04/09/22 04/10/22 11:59 11:59 11:59 11:59 Intake Total 674 2107 Balance 674 2107 Weight 78.8 kg 78.7 kg - Lab Result Diagrams: 04/09/22 05:56 04/09/22 05:56 Lab Results-Last 24 Hrs: Lab Results-Last 24 Hours 04/08/22 04/08/22 04/09/22 Range/Units 15:26 21:28 05:56 WBC 6.3 (4.0-10.5) K/mm3 RBC 4.36 (4.1-5.4) M/mm3 Hgb 13.3 (12.0-16.0) gm/dl Hct 41.6 (35-47) % MCV 95.4 (78-100) fl MCH 30.5 (26-32) pg MCHC 32.0 (32-36) g/dl RDW 12.6 (11.5-14.0) % Plt Count 248 (150-450) K/mm3 MPV 9.6 (7.5-11.0) fl Gran % 52.8 (36.0-66.0) % Eos # (Auto) 0.12 (0-0.5) Absolute Lymphs (auto) 1.97 (1.0-4.6) Absolute Monos (auto) 0.83 (0.0-1.3) Lymphocytes % 31.5 (24.0-44.0) % Monocytes % 13.3 H (0.0-12.0) % Eosinophils % 1.9 (0.00-5.0) % Basophils % 0.5 (0.0-0.4) % Absolute Granulocytes 3.31 (1.4-6.9) Basophils # 0.03 (0-0.4) Sodium (137-145) mmol/L Potassium (3.5-5.1) mmol/L Chloride (98-107) mmol/L Carbon Dioxide (22-30) mmol/L Anion Gap (5-15) MEQ/L BUN (7-17) mg/dL Creatinine (0.52-1.04) mg/dL Estimated GFR ML/MIN Glucose (74-106) mg/dL POC Glucometer 99 130 H (74 to 106) mg/dL Calcium (8.4-10.2) mg/dL Total Bilirubin (0.2-1.3) mg/dL AST (14-36) U/L ALT (0-35) U/L Alkaline Phosphatase (38-126) U/L Serum Total Protein (6.3-8.2) g/dL Albumin (3.5-5.0) g/dL 04/09/22 04/09/22 Range/Units 05:56 11:34 WBC (4.0-10.5) K/mm3 RBC (4.1-5.4) M/mm3 Hgb (12.0-16.0) gm/dl Hct (35-47) % MCV (78-100) fl MCH (26-32) pg MCHC (32-36) g/dl RDW (11.5-14.0) % Plt Count (150-450) K/mm3 MPV (7.5-11.0) fl Gran % (36.0-66.0) % Eos # (Auto) (0-0.5) Absolute Lymphs (auto) (1.0-4.6) Absolute Monos (auto) (0.0-1.3) Lymphocytes % (24.0-44.0) % Monocytes % (0.0-12.0) % Eosinophils % (0.00-5.0) % Basophils % (0.0-0.4) % Absolute Granulocytes (1.4-6.9) Basophils # (0-0.4) Sodium 139 (137-145) mmol/L Potassium 3.6 (3.5-5.1) mmol/L Chloride 110 H (98-107) mmol/L Carbon Dioxide 23 (22-30) mmol/L Anion Gap 9.2 (5-15) MEQ/L BUN 9 (7-17) mg/dL Creatinine 0.49 L (0.52-1.04) mg/dL Estimated GFR > 60.0 ML/MIN Glucose 136 H (74-106) mg/dL POC Glucometer 180 H (74 to 106) mg/dL Calcium 8.3 L (8.4-10.2) mg/dL Total Bilirubin 0.50 (0.2-1.3) mg/dL AST 26 (14-36) U/L ALT 23 (0-35) U/L Alkaline Phosphatase 69 (38-126) U/L Serum Total Protein 6.0 L (6.3-8.2) g/dL Albumin 3.3 L (3.5-5.0) g/dL Micro Results-Entire Visit: Microbiology 04/07/22 21:53 Urine Culture - Final Urine, Void Escherichia Coli Accuchecks Date 04/09/22 Date 04/09/22 Date 04/08/22 Date 04/08/22 Time 11:57 Time 07:18 Time 21:30 Time 15:26 - Radiology Exams Ordered Rad Exams-Entire Visit: Radiology Procedures Category Date Time Status CHEST 1 VIEW (PORTABLE) Stat Exams 04/07/22 20:58 Completed HEAD WITHOUT CONTRAST [CT] Stat Exams 04/07/22 20:07 Completed - Procedures and Test Procedures and Tests throughout Hospitalization: Therapy Orders & Screens 04/07/22 23:41 Oxygen Nasal Cannula 2 lpm Comment: 04/08/22 00:03 Respiratory Therapy Assessment DAILY Comment: Diagnosis: Stroke 04/08/22 08:00 OT Screen per Nursing Assess ONCE Comment: Protocol Order Physician Instructions: Greater than 3 points order OT Admission Screening Reason For Exam: Triggered on Admission Diagnosis: CVA Open Wound/Cellutlitis/Pressure Ulcers: No Acute Fx/ORIF/Change in wt bearing status: No Severe MUSCULOSKELETAL pain: No ADL Dysfunction: No Acute CVA w/Hemiparesis/Hemiplegia: Yes Decreased Functional Mobility/Strength: Yes Sprain/Strain: No Acute Post-op Mobility Dysfunction: No Total Points: 6 PT Screen per Nursing Assess ONCE Comment: Protocol Order Physician Instructions: Greater than 3 points order PT Admission Screenin Reason For Exam: Triggered on Admission Diagnosis: CVA Open Wound/Cellutlitis/Pressure Ulcers: No Acute Fx/ORIF/Change in wt bearing status: No Severe MUSCULOSKELETAL pain: No ADL Dysfunction: No Acute CVA w/Hemiparesis/Hemiplegia: Yes Decreased Functional Mobility/Strength: Yes Sprain/Strain: No Acute Post-op Mobility Dysfunction: No Total Points: 6 ST Screen per Nursing Assess ONCE Comment: Protocol Order Physician Instructions: Greater than [address] Admission Screening Reason For Exam: Triggered on Admission Diagnosis: CVA CVA/Dyshpagia/Aphasia: Yes Cognitive Deficits: No Dehydration/Nutrition Deficit: No Reflux: Yes Oral-Motor Difficulties: No Pneumonia: No Custodial Resident: No Total Points: 8 04/08/22 08:24 Speech Therapy Eval & Treat [ST Eval & Treat ( Order)] .as ordered Comment: Physician Instructions: Reason For Exam: CVA Evaluate: Yes Treat: Yes Reason for Eval: CVA Diagnosis: CVA Discharge Exam General Appearance: no apparent distress, alert, other (pt lying/sitting in bed) Neurologic Exam: oriented x 3, cooperative, normal mood/affect, other (decreased use/strength in RUE, which she indiates is chronic.) Eye Exam: eyes nml inspection Ears, Nose, Throat Exam: moist mucous membranes Neck Exam: normal inspection Respiratory Exam: normal breath sounds, lungs clear, No crackles/rales, No rhonchi, No wheezing Cardiovascular Exam: regular rate/rhythm, normal heart sounds, No murmur Gastrointestinal/Abdomen Exam: soft, normal bowel sounds, No tenderness, No distention, No mass, No guarding, No rebound Back Exam: normal inspection, No rash Extremity Exam: normal inspection, No pedal edema, No swelling Skin Exam: normal color, warm, dry, No rash Final Diagnosis/Problem List - Final Discharge Diagnosis/Problem (1) History of CVA (cerebrovascular accident) Current Visit: Yes Status: Chronic Code(s): Z86.73 - PRSNL HX OF TIA (TIA), AND CEREB INFRC W/O RESID DEFICITS (2) Stroke-like symptoms Current Visit: Yes Status: Suspected Assessment & Plan: Could have been related to her UTI. However she was not able/refused MRI. Code(s): R29.90 - UNSPECIFIED SYMPTOMS AND SIGNS INVOLVING THE NERVOUS SYSTEM (3) UTI (urinary tract infection) Current Visit: Yes Status: Acute Assessment & Plan: E. coli; will send home on keflex for 3d. Code(s): N39.0 - URINARY TRACT INFECTION, SITE NOT SPECIFIED (4) HTN (hypertension) Current Visit: No Status: Chronic Assessment & Plan: BP from 116/75 to 152/87 today. Code(s): I10 - ESSENTIAL (PRIMARY) HYPERTENSION - Discharge Disposition: Home, Self-Care Condition: Good Prescriptions: New Cephalexin Mh 500 mg [Keflex 500 mg] 500 mg PO Q6H 3 Days #12 cap PANTOPRAZOLE 40 mg Tablet [Protonix 40MG Tablet] 40 mg PO QAM #14 tab Continue Simvastatin 20Mg [Zocor 20Mg] 40 mg PO HS #30 tablet Metoprolol Succinate 50 mg [Toprol Xl 50 MG] 100 mg PO Q12H Lisinopril 10 mg [Zestril 10 MG] 10 mg PO DAILY Famotidine [Pepcid] 40 mg PO DAILY Clopidogrel Bisulfate 75 mg [PLAVIX 75 MG Tablet] 75 mg PO DAILY #30 Montelukast Sodium 10 mg [Singulair 10 MG] 10 mg PO DAILY Levothyroxine Sodium 50 Mcg [Synthroid 50 Mcg] 112 mcg PO DAILY Aspirin EC 325 mg [Ecotrin 325 MG] 325 mg PO QHS Metformin HCl [Metformin HCl ER] 500 mg PO DAILY Instructions: Stroke (DC), Urinary Tract Infection, Adult (DC) Additional Instructions: REFERRAL WAS SENT FOR YOU FOR [facility]. THEY WILL CONTACT YOU WITH ANY FURTHER INFORMATION NEEDED. Forms: Discharge Instructions
== END 2022-04-09 16:05 | disposition home or self-care (01) ==
LOC: ED 19:43 → ICU 23:40 → MED SURG 04-08 23:42
PROVIDERS: ADMIT Family Medicine; ATTEND Family Medicine
DX: R29.90 Unspecified symptoms and signs involving the nervous system (principal); N39.0 Urinary tract infection, site not specified; A49.8 Other bacterial infections of unspecified site; R51.9 Headache, unspecified; I69.351 Hemiplegia and hemiparesis following cerebral infarction affecting right dominant side; I10 Essential (primary) hypertension; E78.00 Pure hypercholesterolemia, unspecified; E11.9 Type 2 diabetes mellitus without complications; Z20.828 Contact with and (suspected) exposure to other viral communicable diseases; Z79.899 Other long term (current) drug therapy; Z79.01 Long term (current) use of anticoagulants
CPT/HCPCS: 0241U; 36000; 36415; 70450; 71045; 80053; 81015; 82947; 84484; 85025; 85610; 85730; 87077; 87086; 87186; 92610; 93005; 93041; 93268; 96372; 99285; G0378; J0696; J1650; A9270-GY

== ENCOUNTER 2022-06-14 07:09 | Day surgery (SDC) | payer MEDICARE ==
[~2022-06-14 07:09] MED LIST changes: +Ak-Dilate OPHTHALMIC*** 1.065 ML, Cyclogyl 1% OPHTH SOL 1.065 ML, GATIFLOXACIN 0.5% OPH... OP ONE; +BETADINE 5% OPHTHALMIC 30 ML OP ONE; +Lactated Ringers 1,000 ML IV SCH; +NON-FORMULARY ITEM OP ONE; +TETRACAINE 0.5% STERI-UNIT SOL OP ONE; -XYLOCAINE 1% HCL 20 ML MDV ONE; +cefUROXime sodium 0.005 GM in Sodium Chloride Flush 30 ML*** 0.5 ML IJ ONE
[2022-06-14] MEDS ORDERED: Lactated Ringers 1,000 ML IV ONE ×2 (07:42→09:41)
[2022-06-14] MEDS ORDERED: Zofran 4 MG/2 ML VIAL IV PRN (08:00)
[2022-06-14] MEDS ORDERED: ACETAZOLAMIDE 250 MG TABLET PO ONE (08:00)
[2022-06-14] MEDS ORDERED: DIPRIVAN 200 MG/20 ML IV ONE (09:34)
[2022-06-14 10:12] VITALS: BP 100/65; PULSE 86; O2SAT 95
[2022-06-14] MEDS ORDERED: Epinephrine Preservative Free 1 MG/ML INTRAOP ONE (16:00)
[2022-06-14] MEDS ORDERED: LIDOCAINE HCL 1% 50 MG/5 ML VL PF IJ ONE (16:00)
== END 2022-06-14 10:20 | disposition home or self-care (01) ==
LOC: SDC 07:09
PROVIDERS: ATTEND Ophthalmology
DX: H25.811 Combined forms of age-related cataract, right eye (principal); E11.9 Type 2 diabetes mellitus without complications
CPT/HCPCS: 82947; C1780; J0171; J2001; J2704; A9270-GY